=== PATIENT | male | born 1965 | race Caucasian/White ===

== ENCOUNTER 2021-07-30 10:25 | Outpatient (CLI) | payer OTHER | END 2021-07-30 10:26 | disposition home or self-care (01) | LOC: BICRAD 10:25 | PROVIDERS: ATTEND Internal Medicine Gastroenterology | DX: R06.00 Dyspnea, unspecified (principal); Z12.11 Encounter for screening for malignant neoplasm of colon; R49.0 Dysphonia | CPT/HCPCS: 71046 ==